=== PATIENT | male | born 1940 | race Caucasian/White ===

== ENCOUNTER 2022-02-23 18:54 | Emergency (ER) | payer OTHER ==
[~2022-02-23] VITALS: Ht 182.9 cm; Wt 95.0 kg
[~2022-02-23 18:54] MED LIST: ADLT ASA LOW81 MG PO; ALLERGY RELF10 M3 PO; BOOSTRIX IM; COQ10100 MG OR; CRESTOR20 MG PO; DOXAZOSIN8 MG PO; FINASTERIDE5 MG PO; FISH OIL1000 MG PO; FUROSEMIDE20 MG PO; LEVOTHYROXIN150 MC1 PO; METOPROL TAR25 M1 PO; NIASPAN500 MG PO; TRANSDERM-SCOP1.5 MG TD; UROXATRAL10 MG OR
[2022-02-23 19:25] LABS: HEMOGLOBIN 13.8 g/dl (14.0-18.0); IMMATURE GRANULOCYTES 0.5 % (0.0-5.0); MEAN CELL VOLUME 93.7 fL CALC (80.0-100.0); MEAN CORPUSCULAR HGB 30.1 pG CALC (26.0-32.0); MEAN CORPUSCULAR HGB CONC 32.1 g/dL CAL (32.0-36.0); NEUT# 4.58 thou/uL (1.82-7.42); RED BLOOD COUNT 4.59 mill/uL (4.70-6.10); RED CELL DISTRI WIDTH 13.3 % (11.5-15.5)
[2022-02-23 19:28] LABS: URINE BILIRUBIN - DIPSTICK NEGATIVE (NEGATIVE); URINE BLOOD DIPSTICK NEGATIVE (NEGATIVE); URINE COLOR YELLOW; URINE GLUCOSE - DIPSTICK NEGATIVE (NEGATIVE); URINE KETONE NEGATIVE (NEGATIVE); URINE LEUK ESTERASE NEGATIVE (NEGATIVE); URINE PROTEIN - DIPSTICK NEGATIVE (NEG-TRACE); URINE SPECIFIC GRAVITY 1.015; URINE UROBILINOGEN - DIPSTICK 0.2 E.U./dL (0.2)
[2022-02-23 19:31] LABS: URINE NITRITE - DIPSTICK NEGATIVE (Negative)
[2022-02-23 19:40] LABS: ALBUMIN 4.2 g/dL (3.2-5.0); ANION GAP 9 (6-22 (CALC)); BILIRUBIN, TOTAL 0.4 mg/dL (0.0-1.4); BUN 36 mg/dL (8-23); BUN/CREATININE RATIO 20 (12-20 (CALC)); CARBON DIOXIDE 34 mmol/l (22-30); CHLORIDE 101 mmol/l (95-108); CREATININE 1.8 mg/dL (0.7-1.3); GFR 36 ML/MIN (>=60 (CALC)); GFR FOR AFR.AMER. 44 ML/MIN (>=60 (CALC)); SGOT/AST 26 u/l (19-48); SODIUM 140 mmol/l (137-146); TOTAL PROTEIN 7.5 g/dL (6.3-8.2)
[2022-02-23 19:41] LABS: ALKALINE PHOSPHATASE 50 u/l (38-126)
[2022-02-23 19:52] LABS: MYOGLOBIN 172 ng/mL (0 - 121)
[2022-02-23] MEDS ORDERED: MECLIZINE25 MG PO (21:03)
[2022-02-23 21:07] VITALS: BP 145/81
== END 2022-02-23 21:17 | disposition home or self-care (01) | DRG 149 ==
LOC: ED 18:54
PROVIDERS: Family Medicine
DX: H81.10 Benign paroxysmal vertigo, unspecified ear (principal)